=== PATIENT | male | born 1975 | race Caucasian/White ===

== ENCOUNTER 2023-04-13 10:13 | Emergency (ER) | payer BC ==
[2023-04-13] MEDS ORDERED: Morphine 4 MG/ML VIAL ONE (11:12)
== END 2023-04-13 11:25 | disposition home or self-care (01) ==
LOC: MADERS 10:13
DX: S22.41XA Multiple fractures of ribs, right side, initial encounter for closed fracture (principal); V80.010A Animal-rider injured by fall from or being thrown from horse in noncollision accident, initial encounter
CPT/HCPCS: 96372; J2270